=== PATIENT | male | born 1965 | race Caucasian/White ===

== ENCOUNTER 2016-11-13 17:14 | Emergency (ER) | payer MEDICAID ==
[2016-11-13 17:14] VITALS: BMI 23.6
[2016-11-13 17:21] VITALS: TEMP 97.6; O2SAT 98
[2016-11-13] MEDS ORDERED: Naproxen 550 mg Tab PO STA (17:45)
--- NOTE | 2016-11-13 17:58 | C.PDOC ---
History Of Present Illness 51 yo male, hx of chronic shoulder pain, presents with left shoulder pain, that is "his chronic pain". pt had recent mri, with uncertain results. pt due to see orthopedic surgery. pt denies any new trauma or complaints Time Seen by Provider: 11/13/16 17:24 Chief Complaint (Nursing): Pain, Chronic Past Medical History Reviewed: Historical Data, Nursing Documentation, Vital Signs Vital Signs: Last Vital Signs Temp 97.6 F 11/13/16 17:19 Pulse 75 11/13/16 18:14 Resp 18 11/13/16 18:14 BP 124/75 11/13/16 18:14 Pulse Ox 98 11/13/16 18:14 - Medical History PMH: Asthma, Back Problems Family History: States: Unknown Family Hx - Social History Hx Tobacco Use: Yes Hx Alcohol Use: Yes Hx Substance Use: No - Immunization History Hx Tetanus Toxoid Vaccination: No Hx Influenza Vaccination: Yes Hx Pneumococcal Vaccination: No Review Of Systems Except As Marked, All Systems Reviewed And Found Negative. Musculoskeletal: Positive for: Shoulder Pain (left) Physical Exam - Physical Exam Appears: Well, No Acute Distress Skin: Normal Color, Warm, Dry Eye(s): bilateral: Normal Inspection, PERRL, EOMI Nose: Normal Throat: Normal Neck: Normal Cardiovascular: Rhythm Regular Respiratory: Normal Breath Sounds Gastrointestinal/Abdominal: Normal Exam Back: Normal Inspection Extremity: Tenderness ((+)left shoulder), No Deformity, Swelling (mild), Other ( decreased rom 2/2 to pain, with abduction) ED Course And Treatment O2 Sat by Pulse Oximetry: 98 - Other Rad X-Ray - Left Shoulder X-Ray: Viewed By Me, Read By Radiologist Interpretation: PROCEDURE: Radiographs of the Left Shoulder. HISTORY: pain. COMPARISON: No prior. FINDINGS: BONES: No acute displaced fracture. The distal clavicle and underlying ribs appear intact. JOINTS: No acute dislocation. Acromioclavicular arthropathy. Glenohumeral joint space narrowing. SOFT TISSUES: Soft tissues appear unremarkable. No evidence of radiopaque foreign body. IMPRESSION: No acute displaced fracture or dislocation evident. If symptoms persist or if there is continued clinical concern, x-ray follow- up in 7-10 days should be considered. Medical Decision Making Medical Decision Making: xr neg for fx, suspected rotator cuff injury. given immobilzier. advise outpt f/ u . upon d/c, pt requests "shot for pain". will dose toradol Disposition - Disposition Referrals: Boogie Noel MD [Staff Provider] - Disposition: HOME/ ROUTINE Disposition Time: 17:58 Condition: GOOD Additional Instructions: please see an orthopedic doctor. return to er with worsening symptoms or concerns. Prescriptions: Naproxen 500 mg PO BID PRN #14 tab PRN Reason: Pain, Mild (1-3) Instructions: Shoulder Pain (ED), Shoulder Sprain (ED) - Clinical Impression Clinical Impression: Shoulder pain
[2016-11-13] MEDS ORDERED: Naproxen 550 mg Tab PO ONE (18:02)
--- NOTE | 2016-11-13 18:11 | RAD ---
PROCEDURE: Radiographs of the Left Shoulder HISTORY: pain COMPARISON: No prior. FINDINGS: BONES: No acute displaced fracture. The distal clavicle and underlying ribs appear intact. JOINTS: No acute dislocation. Acromioclavicular arthropathy. Glenohumeral joint space narrowing. SOFT TISSUES: Soft tissues appear unremarkable. No evidence of radiopaque foreign body. IMPRESSION: No acute displaced fracture or dislocation evident. If symptoms persist or if there is continued clinical concern, x-ray follow-up in 7-10 days should be considered.
[2016-11-13 18:14] VITALS: BP 124/75; PULSE 75; RESP 18
== END 2016-11-13 18:20 | disposition home or self-care (01) ==
LOC: C.ER 17:14
DX: M25.512 Pain in left shoulder (principal)

== ENCOUNTER 2017-04-03 20:48 | Emergency (ER) | payer MEDICAID ==
[2017-04-03 20:48] VITALS: BMI 23.6
[2017-04-03 21:04] VITALS: BP 152/93; PULSE 99; RESP 18; TEMP 98.2; O2SAT 99
--- NOTE | 2017-04-03 22:00 | C.PDOC ---
History Of Present Illness Patient at ED accompanying mother who is in cardiac arrest develops complaints of chest pain after finding out mother's condition. When patient is examined he states he feels better and does not want to be examined anymore. Patient is explained length of risks including permanent disability and . Patient understands and is signed AMA and encouraged to return to ED if symptoms return. Time Seen by Provider: 04/03/17 21:58 Chief Complaint (Nursing): Chest Pain History Per: Patient History/Exam Limitations: no limitations Onset/Duration Of Symptoms: Mins Current Symptoms Are (Timing): Still Present Severity: Mild Pain Scale Rating Of: 2 Quality: "Pain" Associated Symptoms: denies: Nausea Exacerbating Factors: None Recent travel outside of the [place]: No Past Medical History Reviewed: Historical Data, Nursing Documentation, Vital Signs Vital Signs: Last Vital Signs Temp 98.2 F 04/03/17 21:03 Pulse 99 H 04/03/17 21:03 Resp 18 04/03/17 21:03 BP 152/93 H 04/03/17 21:03 Pulse Ox 99 04/04/17 05:42 - Medical History PMH: Asthma, Back Problems Family History: States: No Known Family Hx - Social History Hx Tobacco Use: Yes Hx Alcohol Use: Yes Hx Substance Use: No - Immunization History Hx Tetanus Toxoid Vaccination: No Hx Influenza Vaccination: Yes Hx Pneumococcal Vaccination: No Review Of Systems Cardiovascular: Positive for: Chest Pain Skin: Negative for: Rash Physical Exam - Physical Exam Additional Physical Exam Comments: Physical examine not performed, patient denied to be seen ED Course And Treatment ECG: Interpreted By Me, Viewed By Me ECG Rhythm: Sinus Rhythm (96), Nonspecific Changes O2 Sat by Pulse Oximetry: 99 (RA) Pulse Ox Interpretation: Normal - Radiology CXR: Interpreted by Me, Viewed By Me CXR Interpretation: No: Infiltrates, Fracture, Pnemothorax Against Medical Advice - AMA Patient Left Against Medical Advice: The patient declines admission to the hospital and wishes to leave the Emergency Department. This action is against my medical advice. This decision was made with informed refusal. The patient was told that admission to the hospital is necessary. Explanation of the reasons why were discussed. The risks of leaving were explained to the patient and include, but are not limited to, worsening of known or currently unknown conditions, permanent disability and from undiagnosed or untreated conditions. The patient has the capacity to make this informed decision and understands my explanation of the current medical problem and risks of leaving. The patient voluntarily accepts these risks and signed an AMA form documenting our conversation. The patient was given the opportunity to ask questions and reconsider. The patient was encouraged to return to the Emergency Department at any time for further care. Disposition Counseled Patient/Family Regarding: Studies Performed, Diagnosis, Need For Followup - Disposition Disposition: AGAINST MEDICAL ADVICE Disposition Time: 22:00 Condition: FAIR Forms: [facility] (Pashto) - Clinical Impression Clinical Impression: Grief reaction - Scribe Statement The provider has reviewed the documentation as recorded by the Scribe Bhavesh Monteiro All medical record entries made by the Luis Angelibe were at my direction and personally dictated by me. I have reviewed the chart and agree that the record accurately reflects my personal performance of the history, physical exam, medical decision making, and the department course for this patient. I have also personally directed, reviewed, and agree with the discharge instructions and disposition.
[2017-04-03] MEDS ORDERED: Aspirin 325 mg EC Tablets PO STA (22:01)
--- NOTE | 2017-04-04 13:02 | CARD ---
APPROVED REPORT EKG Measurement Heart [id number] <Conclusion> Normal sinus rhythm Normal ECG
== END 2017-04-03 22:15 | disposition left against medical advice (07) ==
LOC: C.ER 20:48
DX: F43.20 Adjustment disorder, unspecified (principal)

== ENCOUNTER 2017-11-15 13:54 | Emergency (ER) | payer MEDICAID ==
[2017-11-15 13:54] VITALS: BMI 23.6
[2017-11-15 14:07] VITALS: BP 123/80; PULSE 73; RESP 18; TEMP 98.5; O2SAT 96
--- NOTE | 2017-11-15 14:36 | C.PDOC ---
History Of Present Illness Pt c/o right upper eyelid painful lesion. Time Seen by Provider: 11/15/17 14:24 Chief Complaint (Nursing): Eye Problem History Per: Patient Onset/Duration Of Symptoms: Days (2) Current Symptoms Are (Timing): Still Present Injury To Eye?: No Severity: Moderate Wears Contact Lens?: No Associated Symptoms: Pain, Swelling, Discharge From Eye Additional History Per: Prior Records Past Medical History Reviewed: Historical Data, Nursing Documentation, Vital Signs Vital Signs: Last Vital Signs Temp 98.5 F 11/15/17 14:06 Pulse 73 11/15/17 14:06 Resp 18 11/15/17 14:06 BP 123/80 11/15/17 14:06 Pulse Ox 96 11/15/17 14:06 - Medical History PMH: Asthma, Back Problems Family History: States: Unknown Family Hx - Social History Hx Tobacco Use: Yes Hx Alcohol Use: Yes Hx Substance Use: No - Immunization History Hx Tetanus Toxoid Vaccination: Yes (2012) Hx Influenza Vaccination: Yes Hx Pneumococcal Vaccination: No Review Of Systems Except As Marked, All Systems Reviewed And Found Negative. Constitutional: Negative for: Fever, Weakness Eyes: Positive for: Eyelid Inflammation (right upper). Negative for: Vision Change, Conjunctivae Inflammation Cardiovascular: Negative for: Chest Pain Respiratory: Negative for: Cough, Shortness of Breath Gastrointestinal: Negative for: Vomiting Musculoskeletal: Negative for: Neck Pain Neurological: Negative for: Weakness, Numbness Physical Exam - Physical Exam Appears: Non-toxic, No Acute Distress Skin: Warm, Dry Head: Atraumatic, Normacephalic Eye(s): bilateral: PERRL, EOMI, right: Eyelid Inflammation (upper. Stye.) Neck: Normal ROM, Supple Lymphatic: No Adenopathy Extremity: Normal ROM Neurological/Psych: Oriented x3, Normal Cranial Nerves, Normal Motor, Normal Sensation ED Course And Treatment O2 Sat by Pulse Oximetry: 96 Pulse Ox Interpretation: Normal Disposition Counseled Patient/Family Regarding: Diagnosis, Need For Followup, Rx Given - Disposition Referrals: Leonides Warner MD [Medical Doctor] - Zak Andres MD [Staff Provider] - Disposition: HOME/ ROUTINE Disposition Time: 14:38 Condition: IMPROVED Additional Instructions: Apply warm compresses. Follow up with an extender (eye doctor) if not better in 2-3 days. Return to the ER if you develop fever, worsening of symptoms or if you have any other concerns. Prescriptions: Erythromycin 0.5% [Ilytocin] 1 applic OD QID #1 tube Instructions: Todd (Hordeolum) Forms: [facility] (Montenegrin) - Clinical Impression Clinical Impression: Hordeolum of right upper eyelid
== END 2017-11-15 14:49 | disposition home or self-care (01) ==
LOC: C.ER 13:54
DX: H00.011 Hordeolum externum right upper eyelid (principal)